=== PATIENT | male | born 1965 | race Caucasian/White ===

== ENCOUNTER 2017-08-29 12:23 | Day surgery (SDC) | payer OTHER ==
[~2017-08-29] VITALS: Ht 177.8 cm; Wt 72.4 kg
[~2017-08-29 12:23] MED LIST: ATOR10TA9 PO; ATOR20TA9 PO; BUPR150T73 PO; CHOL100011 PO; FLUT16SP INH; FLUT9.9S NAS; LEVO25TA4 PO; LEVOTHYROXINE PO; VISIPAQUE 270 MG/ML, 150ML BOTTLE ONE
[2017-08-29 12:56] VITALS: BP 107/70
[2017-08-29] MEDS ORDERED: SODIUM CHLORIDE 0.45% 1,000 ML IV SCH (14:00)
[2017-08-29] MEDS ORDERED: FLUMAZENIL 0.1 MG/1 ML, 5ML ONE (14:23)
[2017-08-29] MEDS ORDERED: MIDAZOLAM 1 MG/ML, 5ML ONE (14:23)
[2017-08-29] MEDS ORDERED: FENTANYL PF 100 MCG/2ML ONE (14:23)
[2017-08-29] MEDS ORDERED: NALOXONE 1 MG/ML, 2ML ONE (14:24)
[2017-08-29] MEDS ORDERED: HEPARIN 1,000 UNITS/ML, 10ML ONE (14:24)
[2017-08-29] MEDS ORDERED: LIDOCAINE 2%, 20ML ONE (14:40)
== END 2017-08-29 18:00 ==
LOC: OUT 12:23
PROVIDERS: ATTEND Surgery
DX: I70.213 Atherosclerosis of native arteries of extremities with intermittent claudication, bilateral legs (principal); Z98.890 Other specified postprocedural states
CPT/HCPCS: 37221; 37223; 75630; 76937; 99156; 99157; C1760; C1769; C1876; C1894; J1644; J2250; J3010; J3490; Q9966; J2310